=== PATIENT | male | born 1955 | race Caucasian/White ===

== ENCOUNTER 2019-02-26 22:34 | Emergency (ER) | payer OTHER ==
[2019-02-27 00:17] LABS: BASOPHILS # (AUTO) 0.1 10^3/uL (0.0-0.1); BASOPHILS % (AUTO) 0.9 %; EOSINOPHILS # (AUTO) 0.1 10^3/uL (0.0-0.7); EOSINOPHILS % (AUTO) 1.1 %; LYMPHOCYTES # (AUTO) 2.1 10^3/uL (1.5-3.5); LYMPHOCYTES % (AUTO) 18.8 %; MEAN CORPUSCULAR HGB CONC 34.5 g/dL (32.0-36.0); MEAN CORPUSCULAR VOLUME 86.9 fL (80.0-94.0); MEAN PLATELET VOLUME 7.5 fL (7.4-11.4); MONOCYTES # (AUTO) 0.8 10^3/uL (0.0-1.0); MONOCYTES % (AUTO) 7.1 %; NEUTROPHILS # (AUTO) 7.9 10^3/uL (1.5-6.6); NEUTROPHILS % (AUTO) 72.1 %; PLT - PLATELET COUNT 247 10^3/uL (130-450); RED BLOOD COUNT 4.69 10^6/uL (4.70-6.10); RED CELL DISTRIBUTION WIDTH 12.7 % (12.0-15.0)
[2019-02-27 00:20] LABS: ALBUMIN 4.2 g/dL (3.2-5.5); ALBUMIN/GLOBULIN RATIO 1.2 (1.0-2.2); BILIRUBIN,TOTAL 1.1 mg/dL (0.2-1.0); CALCIUM 9.4 mg/dL (8.5-10.3); CREATININE 1.2 mg/dL (0.6-1.2); TOTAL PROTEIN 7.7 g/dL (6.7-8.2)
--- NOTE | 2019-02-27 00:33 | ED Physician Documentation ---
PD HPI ABD PAIN - Stated complaint Stated Complaint: ABD PX - Chief complaint Chief Complaint: Abd Pain - History obtained from History obtained from: Patient - History of Present Illness Timing - onset: How many days ago (3) Timing - duration: Days Timing - details: Abrupt onset, Intermittant, Waxing and waning Pain level max: 6 Pain level now: 1 Quality: Pain Location: LLQ Radiation: Other (no radiation) Improved by: Meds (responds to ibuprofen) Worsened by: Palpation Associated symptoms: Nausea. No: Fever, Vomiting, Diarrhea, Constipation Similar symptoms before: Has not had sx before Recently seen: Not recently seen - Additional information Additional information: episodic LLQ pain since earlier today, responds to ibuprofen but returns as the ibuprofen wears off. had similar episode 3 days ago that only required one-time dose of ibuprofen (before returning today). Review of Systems Constitutional: reports: Reviewed and negative Cardiac: reports: Reviewed and negative Respiratory: reports: Reviewed and negative GI: reports: Abdominal Pain, Nausea. denies: Vomiting, Constipation, Diarrhea : reports: Hematuria. denies: Dysuria, Frequency PD PAST MEDICAL HISTORY - Past Medical History Past Medical History: No - Past Surgical History General: Appendectomy - Present Medications Home Medications: Ambulatory Orders Medication Instructions Recorded Confirmed Oxycodone HCl/Acetaminophen 1 - 2 each PO Q6H PRN #14 tablet 02/27/19 [Percocet 5-325 mg Tablet] Tamsulosin [Flomax] 0.4 mg PO DAILY #7 capsule 02/27/19 - Allergies Allergies/Adverse Reactions: Allergies Allergy/AdvReac Type Severity Reaction Status Date / Time No Known Drug Allergies Allergy Verified 02/26/19 22:37 - Social History Does the pt smoke?: No Smoking Status: Never smoker Does the pt have substance abuse?: No - POLST Patient has POLST: No PD ED PE NORMAL - Vitals Vital signs reviewed: Yes - General General: Alert and oriented X 3, No acute distress, Well developed/nourished - Cardiac Cardiac: RRR, No murmur - Respiratory Respiratory: No respiratory distress, Clear bilaterally - Abdomen Abdomen: Soft, Non distended, Other (mild tenderness LLQ without guarding or rebound) - Back Back: No CVA TTP - Derm Derm: Normal color, Warm and dry, No rash Results - Vitals Vitals: Oxygen O2 Source Room air - Labs Labs: Laboratory Tests 02/26/19 02/26/19 02/27/19 23:55 23:55 00:54 WBC 11.0 H RBC 4.69 L Hgb 14.0 Hct 40.8 L MCV 86.9 MCH 30.0 MCHC 34.5 RDW 12.7 Plt Count 247 MPV 7.5 Neut # (Auto) 7.9 H Lymph # (Auto) 2.1 Park # (Auto) 0.8 Eos # (Auto) 0.1 Baso # (Auto) 0.1 Absolute Nucleated RBC 0.00 Nucleated RBC % 0.0 Sodium 140 Potassium 4.0 Chloride 105 Carbon Dioxide 22 Anion Gap 13.0 BUN 26 H Creatinine 1.2 Estimated GFR (MDRD) 61 L Glucose 117 H Calcium 9.4 Total Bilirubin 1.1 H AST 27 ALT 28 Alkaline Phosphatase 54 Total Protein 7.7 Albumin 4.2 Globulin 3.5 Albumin/Globulin Ratio 1.2 Lipase 35 Urine Color YELLOW Urine Clarity CLEAR Urine pH 6.0 Ur Specific [place] <=1.005 Urine Protein NEGATIVE Urine Glucose (UA) NEGATIVE Urine Ketones NEGATIVE Urine Occult Blood NEGATIVE Urine Nitrite NEGATIVE Urine Bilirubin NEGATIVE Urine Urobilinogen 0.2 (NORMAL) Ur Leukocyte Esterase NEGATIVE Ur Microscopic Review NOT INDICATED Urine Culture Comments NOT INDICATED - Rads (name of study) CT A/P Radiology: Prelim report reviewed, See rad report PD MEDICAL DECISION MAKING - ED course Complexity details: reviewed results, re-evaluated patient, considered differential, d/w patient Departure - Departure Disposition: 01 Home, Self Care Clinical Impression: Renal colic Condition: Good Instructions: ED Stone Renal W Colic Follow-Up: Georgina Ken PA [Primary Care Provider] - Prescriptions: Oxycodone HCl/Acetaminophen [Percocet 5-325 mg Tablet] 1 - 2 each PO Q6H PRN #14 tablet PRN Reason: pain Tamsulosin [Flomax] 0.4 mg PO DAILY #7 capsule Discharge Date/Time: 02/27/19 03:33
[2019-02-27] MEDS ORDERED: SODIUM CHLORIDE 0.9% 500 ML IV STA (00:47)
[2019-02-27] MEDS ORDERED: ONDANSETRON 4 MG/2 ML VIAL IVP STA (00:47)
[2019-02-27 01:00] LABS: BILIRUBIN,URINE NEGATIVE (NEGATIVE); GLUCOSE, URINE (UA) NEGATIVE (NEGATIVE); KETONES,URINE (UA) NEGATIVE (NEGATIVE); LEUKOCYTE ESTERASE, URINE NEGATIVE (NEGATIVE); NITRITE,URINE NEGATIVE (NEGATIVE); OCCULT BLOOD,URINE NEGATIVE (NEGATIVE); PROTEIN,URINE NEGATIVE (NEGATIVE); UROBILINOGEN,URINE 0.2 (NORMAL) E.U./dL (NORMAL)
[2019-02-27 01:02] LABS: CLARITY,URINE CLEAR (CLEAR)
[2019-02-27] MEDS ORDERED: IOVERSOL 320 100 ML VIAL IVP ONE ×2 (01:05→01:49)
[2019-02-27] MEDS ORDERED: KETOROLAC 30 MG/ML VIAL IVP STA (01:34)
--- NOTE | 2019-02-27 01:53 | CT Report ---
Reason: LLQ pain Procedure Date: 02/27/2019 Accession Number: [id number] / [id number] Procedure: CT - Abdomen/Pelvis W CPT Code: FULL RESULT: EXAM: CT ABDOMEN AND PELVIS EXAM DATE: 02/27/2019 01:15 AM. CLINICAL HISTORY: Left lower quadrant pain. COMPARISONS: None. TECHNIQUE: Routine helical CT imaging was performed through the abdomen and pelvis. IV contrast: Yes. Enteric contrast: No. Reconstructions: Coronal and sagittal. In accordance with CT protocol optimization, one or more of the following dose reduction techniques were utilized for this exam: automated exposure control, adjustment of mA and/or KV based on patient size, or use of iterative reconstructive technique. FINDINGS: Lung Bases: Unremarkable. Liver: Mildly fatty. No suspicious masses. Gallbladder/Bile Ducts: Unremarkable. Spleen: Unremarkable. Pancreas: Unremarkable. Adrenal Glands: Unremarkable. Kidneys: Mildly obstructing 2 mm left UVJ stone. Small left renal cyst. No suspicious masses or right hydronephrosis. Peritoneal Cavity/Bowel: No bowel obstruction or inflammatory process seen. No free air or significant free fluid. No masses or adenopathy. No excessive stool burden. Pelvic Organs: Bladder and prostate appear unremarkable with exception of the aforementioned left UVJ region stone. Vasculature: No aneurysms or other significant abnormality. Bones: No acute or aggressive appearing abnormality. Advanced L4-L5 degenerative changes accentuated by pars defect on the left and minimal anterolisthesis of L5 on S1. Other: None. IMPRESSION: 1. Mildly obstructing 2 mm left UVJ stone. 2. Mildly fatty liver. RADIA
[2019-02-27] MEDS ORDERED: TAMSULOSIN 0.4 MG CAPSULE PO STA (03:16)
[2019-02-27 03:36] VITALS: BP 148/73
== END 2019-02-27 03:33 | disposition home or self-care (01) ==
LOC: ED 22:34
DX: N20.1 Calculus of ureter (principal); N28.1 Cyst of kidney, acquired
CPT/HCPCS: 36415; 74177; 80053; 81003; 83690; 85025; 96374; 96375; 99283; 99284; A9270; Q9967; 81001; 87086

== ENCOUNTER 2020-04-02 08:31 | Outpatient (CLI) | payer OTHER ==
--- NOTE | 2020-04-02 14:01 | XRAY Report ---
PROCEDURE: Hand 3 View LT INDICATIONS: TRIGGER FINGER OF LEFT HAND TECHNIQUE: 3 views of the hand(s) acquired. COMPARISON: None FINDINGS: Bones: No fractures or dislocations. No suspicious bony lesions. There is diffuse mild to moderate IP degenerative narrowing. Minimal periarticular osteophytes are present. Minimal scattered areas of periarticular lucency are identified. Minimal to mild first CMC degenerative narrowing. Soft tissues: No suspicious soft tissue calcifications. IMPRESSION: Scattered mild arthritic changes as above. Reviewed by: Disha French MD on 04/02/2020 2:00 PM PDT Approved by: Disha French MD on 04/02/2020 2:00 PM PDT Station ID: [id number]
== END 2020-04-02 08:32 | disposition home or self-care (01) ==
LOC: DI.S 08:31
PROVIDERS: ATTEND Nurse Practitioner Family
DX: M65.30 Trigger finger, unspecified finger (principal); M19.042 Primary osteoarthritis, left hand

== ENCOUNTER 2020-10-04 19:52 | Outpatient (CLI) | payer OTHER | END 2020-10-04 19:53 | disposition home or self-care (01) | LOC: COV 19:52 | PROVIDERS: ATTEND Family Medicine | DX: Z20.822 Contact with and (suspected) exposure to COVID-19 (principal) ==